=== PATIENT | male | born 1990 | race African-American/Black ===

== ENCOUNTER 2018-06-25 15:57 | Emergency (ER) | payer BC ==
[2018-06-25 16:11] VITALS: BP 139/89
--- NOTE | 2018-06-25 17:41 | EDM.PDOC ---
ED HPI GENERAL MEDICAL PROBLEM - General Chief Complaint: Chest Pain Stated Complaint: CHEST PAIN SENT BY CLINIC Time Seen by Provider: 06/25/18 16:09 Source of Information: Reports: Patient History Limitations: Reports: No Limitations - History of Present Illness INITIAL COMMENTS - FREE TEXT/NARRATIVE: The patient presents with chest pain. The pain started 3 weeks ago. This comes and goes. It is in the center of the chest. He has no shortness of breath. He has no swelling or pain in his legs. He has no fever, chills or cough. He does not smoke. He has no history of heart problems. Onset: Gradual Duration: Week(s): (3) Location: Reports: Chest Quality: Reports: Sharp Severity: Moderate Improves with: Reports: None Worsens with: Reports: None Associated Symptoms: Reports: Chest Pain. Denies: Cough, Fever/Chills, Headaches, Nausea/Vomiting, Shortness of Breath Middle Chest Pain Score (Numeric/FACES): 8 - Related Data Allergies Allergy/AdvReac Type Severity Reaction Status Date / Time No Known Allergies Allergy Verified 06/25/18 16:09 Home Meds: Home Meds Fluconazole [Diflucan] 150 mg PO ONETIME #1 tab 06/25/18 [Rx] Naproxen [Naprosyn] 500 mg PO Q12HR PRN #30 tab 06/25/18 [Rx] Past Medical History - Past Health History Medical/Surgical History: Denies Medical/Surgical History HEENT History: Reports: None Cardiovascular History: Reports: None Respiratory History: Reports: None Gastrointestinal History: Reports: None Genitourinary History: Reports: None Musculoskeletal History: Reports: None Neurological History: Reports: None Psychiatric History: Reports: None Endocrine/Metabolic History: Reports: None Immunologic History: Reports: None Oncologic (Cancer) History: Reports: None Dermatologic History: Reports: None - Infectious Disease History Infectious Disease History: Reports: None - Past Surgical History Head Surgeries/Procedures: Reports: None Male Surgical History: Reports: None Social & Family History - Family History Family Medical History: Noncontributory - Tobacco Use Smoking Status *Q: Never Smoker - Caffeine Use Caffeine Use: Reports: None - Recreational Drug Use Recreational Drug Use: No - Living Situation & Occupation Living situation: Reports: , Other Occupation: Employed ED ROS GENERAL - Review of Systems Review Of Systems: See Below Constitutional: Reports: No Symptoms HEENT: Reports: No Symptoms Respiratory: Reports: No Symptoms Cardiovascular: Reports: Chest Pain Endocrine: Reports: No Symptoms GI/Abdominal: Reports: No Symptoms : Reports: No Symptoms Musculoskeletal: Reports: No Symptoms ED EXAM, GENERAL - Physical Exam Exam: See Below Exam Limited By: No Limitations General Appearance: Alert, No Apparent Distress Ears: Normal External Exam Nose: Normal Inspection Head: Atraumatic, Normocephalic Neck: Normal Inspection Respiratory/Chest: No Respiratory Distress, Lungs Clear, Normal Breath Sounds Cardiovascular: Regular Rate, Rhythm, No Edema, No Murmur GI/Abdominal: Soft, Non-Tender, No Organomegaly, No Mass Back Exam: Normal Inspection Extremities: Normal Inspection EKG INTERPRETATION EKG Date: 06/25/18 Time: 16:24 Rhythm: NSR Rate (Beats/Min): 63 Jackson: Normal P-Wave: Present QRS: Normal ST-T: Elevated (inferior, lateral and anterior) Course - Vital Signs Last Recorded V/S: Last Vital Signs Temp 98.2 F 06/25/18 16:11 Pulse 74 06/25/18 16:11 Resp 14 06/25/18 16:11 BP 139/89 06/25/18 16:11 Pulse Ox 100 06/25/18 16:11 - Orders/Labs/Meds Orders: Active Orders 24 hr Category Date Time Status Cardiac Monitoring [RC] . DIRECTED Care 06/25/18 16:16 Active EKG Documentation Completion [RC] STAT Care 06/25/18 16:17 Active Chest 2V [CR] Stat Exams 06/25/18 16:17 Taken Labs: Laboratory Tests 06/25/18 06/25/18 06/25/18 Range/Units 16:35 16:35 16:35 WBC 6.98 (4.23-9.07) K/mm3 RBC 5.35 (4.63-6.08) M/mm3 Hgb 15.2 (13.7-17.5) gm/L Hct 42.4 (40.1-51.0) % MCV 79.3 (79.0-92.2) fl MCH 28.4 (25.7-32.2) pg MCHC 35.8 H (32.2-35.5) g/dl RDW Std Deviation 38.7 (35.1-43.9) fL Plt Count 180 (163-337) K/mm3 MPV 11.4 (9.4-12.3) fl Neut % (Auto) 34.6 (34.0-67.9) % Lymph % (Auto) 50.3 (21.8-53.1) % [place] % (Auto) 9.2 (5.3-12.2) % Eos % (Auto) 5.2 (0.8-7.0) Baso % (Auto) 0.6 (0.1-1.2) % Neut # (Auto) 2.42 (1.78-5.38) K/mm3 Lymph # (Auto) 3.51 (1.32-3.57) K/mm3 [place] # (Auto) 0.64 (0.30-0.82) K/mm3 Eos # (Auto) 0.36 (0.04-0.54) K/mm3 Baso # (Auto) 0.04 (0.01-0.08) K/mm3 D-Dimer, Quantitative 0.47 (0.19-0.50) mg/L Sodium 140 (136-145) mEq/L Potassium 3.5 (3.5-5.1) mEq/L Chloride 105 (98-107) mEq/L Carbon Dioxide 30 (21-32) mEq/L Anion Gap 8.5 (5-15) BUN 18 (7-18) mg/dL Creatinine 1.1 (0.7-1.3) mg/dL Est Cr Clr Drug Dosing 95.86 mL/min Estimated GFR (MDRD) > 60 (>60) mL/min BUN/Creatinine Ratio 16.4 (14-18) Glucose 112 H (74-106) mg/dL Calcium 9.2 (8.5-10.1) mg/dL Total Bilirubin 0.5 (0.2-1.0) mg/dL AST 18 (15-37) U/L ALT 32 (16-63) U/L Alkaline Phosphatase 102 (46-116) U/L Troponin I < 0.017 (0.00-0.056) ng/mL Total Protein 7.9 (6.4-8.2) g/dl Albumin 4.2 (3.4-5.0) g/dl Globulin 3.7 gm/dL Albumin/Globulin Ratio 1.1 (1-2) - Re-Assessments/Exams Free Text/Narrative Re-Assessment/Exam: 06/25/18 18:58 His CBC and CMP look good. His troponin is negative. His EKG shows pericarditis. I will get him on some naprosyn. He also wanted me to look at his penis. He has a rash and his has a yeast infection. It does look like a yeast. I gave him a dose of diflucan. Departure - Departure Time of Disposition: 17:40 Disposition: Home, Self-Care 01 Condition: Good Clinical Impression: Magdalene infection of genital region Pericarditis Qualifiers: Pericarditis type: unspecified type Chronicity: acute Qualified Code(s): I30.9 - Acute pericarditis, unspecified Prescriptions: Naproxen [Naprosyn] 500 mg PO Q12HR PRN #30 tab PRN Reason: Pain Fluconazole [Diflucan] 150 mg PO ONETIME #1 tab Instructions: Pericarditis Referrals: PCP,None [Primary Care Provider] - Dinorah Choi PA-C [Physician [employer]] - 1 Week Forms: ED Department Discharge Additional Instructions: Take naprosyn by mouth every 12 hours as needed for pain. Follow up with Dinorah Choi. Please return if you are worse. Take the diflucan 1 time and that should help. - My Orders Last 24 Hours: My Active Orders 06/25/18 16:16 Cardiac Monitoring [RC] . DIRECTED 06/25/18 16:17 EKG Documentation Completion [RC] STAT Chest 2V [CR] Stat - Assessment/Plan Last 24 Hours: My Active Orders 06/25/18 16:16 Cardiac Monitoring [RC] . DIRECTED 06/25/18 16:17 EKG Documentation Completion [RC] STAT Chest 2V [CR] Stat
--- NOTE | 2018-06-28 07:28 | CR ---
Chest: Two views of the chest were obtained. Comparison: No prior chest x-ray. Heart size and mediastinum are normal. Lungs are clear. Bony structures are unremarkable. Impression: 1. Nothing acute is seen on two-view chest x-ray. Diagnostic code #1
== END 2018-06-25 17:53 | disposition home or self-care (01) ==
LOC: JD.ED 15:57
DX: I30.9 Acute pericarditis, unspecified (principal); B37.89 Other sites of candidiasis
CPT/HCPCS: 36415; 71046; 71046-26; 80053; 84484; 85025; 85379; 93005; 93010; 99284; 99285-25

== ENCOUNTER 2019-12-19 04:32 | Emergency (ER) | payer BC ==
[2019-12-19 04:48] VITALS: BP 142/94; PULSE 98
--- NOTE | 2019-12-19 04:54 | EDM.PDOC ---
ED HPI GENERAL MEDICAL PROBLEM - General Chief Complaint: General Stated Complaint: FATIGUE, MUSCLE PAIN Time Seen by Provider: 12/19/19 04:52 - History of Present Illness INITIAL COMMENTS - FREE TEXT/NARRATIVE: 29-year-old male presents the emergency room with body aches after working. On this last this patient spent 11 hours moving from one apartment to the next. He was doing a lot of heavy lifting. Then on Thursday he works about a 14-hour shift at work never had a chance to get better he tried to rest up yesterday but awoke this morning still having some discomfort. He notices the discomfort when he moves his extremities and when he uses his back generally does not have much discomfort with rest. Patient has not had any fevers or chills no generalized aches or pains just when he uses his muscles. Patient has some discomfort in his back when he uses his back this is not associated with any loss of bowel or bladder control. He has not had any burning or frequency with urination no other abdominal symptoms no nausea vomiting constipation or diarrhea. He is not aware of any sick exposures. Patient has tried Tylenol but has not had much success with this. Bilateral Arm Pain Score (Numeric/FACES): 3 - Related Data Allergies Allergy/AdvReac Type Severity Reaction Status Date / Time No Known Allergies Allergy Verified 12/19/19 04:48 Home Meds: Home Meds Fluconazole [Diflucan] 150 mg PO ONETIME #1 tab 06/25/18 [Rx] Naproxen [Naprosyn] 500 mg PO Q12HR PRN #30 tab 06/25/18 [Rx] Past Medical History - Past Health History Medical/Surgical History: Denies Medical/Surgical History HEENT History: Reports: None Cardiovascular History: Reports: None Respiratory History: Reports: None Gastrointestinal History: Reports: None Genitourinary History: Reports: None Musculoskeletal History: Reports: None Neurological History: Reports: None Psychiatric History: Reports: None Endocrine/Metabolic History: Reports: None Immunologic History: Reports: None Oncologic (Cancer) History: Reports: None Dermatologic History: Reports: None - Infectious Disease History Infectious Disease History: Reports: None - Past Surgical History Head Surgeries/Procedures: Reports: None Male Surgical History: Reports: None Social & Family History - Family History Family Medical History: Noncontributory - Tobacco Use Tobacco Use Status *Q: Never Tobacco User Second Hand Smoke Exposure: No - Caffeine Use Caffeine Use: Reports: None - Recreational Drug Use Recreational Drug Use: No - Living Situation & Occupation Living situation: Reports: , Other Occupation: Employed ED ROS GENERAL - Review of Systems Review Of Systems: See Below Constitutional: Reports: No Symptoms HEENT: Reports: No Symptoms Respiratory: Reports: No Symptoms Cardiovascular: Reports: No Symptoms GI/Abdominal: Reports: No Symptoms : Reports: No Symptoms Musculoskeletal: Reports: Other (Muscle pain when he uses that specific muscle like in his upper arms and in his back but no joint pain. The pain is with activity only) Skin: Reports: No Symptoms Neurological: Reports: No Symptoms ED EXAM, GENERAL - Physical Exam Exam: See Below Exam Limited By: No Limitations General Appearance: Alert, No Apparent Distress Head: Atraumatic, Normocephalic Neck: Normal Inspection, Supple, Non-Tender, Full Range of Motion Respiratory/Chest: No Respiratory Distress, Lungs Clear, Normal Breath Sounds Cardiovascular: Regular Rate, Rhythm, No Edema, No Murmur GI/Abdominal: Normal Bowel Sounds, Soft, Non-Tender Back Exam: Normal Inspection, Other (With palpation of his back I really cannot elicit any discomfort). No: CVA Tenderness (L), CVA Tenderness (R), Paraspinal Tenderness, Vertebral Tenderness Extremities: Normal Inspection, Normal Range of Motion, No Pedal Edema, Other (Palpation does not seem to cause any discomfort and again the patient says he has pain when using the specific muscles) Neurological: Alert, Oriented, Normal Cognition Skin Exam: Warm, Dry, Intact Course - Vital Signs Last Recorded V/S: Last Vital Signs Temp 36.6 C 12/19/19 04:43 Pulse 98 12/19/19 04:43 Resp 20 12/19/19 04:43 BP 142/94 H 12/19/19 04:43 Pulse Ox 99 12/19/19 04:43 - Orders/Labs/Meds Orders: Active Orders 24 hr Category Date Time Status Influenza Vaccine Charge [RC] .DISCHARGE Care 12/19/19 04:50 Active Meds: Medications Discontinued Medications Generic Name Dose Route Start Last Admin Trade Name Freq PRN Reason Stop Dose Admin Influenza Virus Vaccine 60 mcg 12/19/19 05:00 Fluzone Quad [id number] Syringe IM 12/19/19 05:01 .ONCE ONE Departure - Departure Time of Disposition: 05:16 Disposition: Home, Self-Care 01 Clinical Impression: Muscle pain - Discharge Information Referrals: PCP,None [Primary Care Provider] - Forms: ED Department Discharge Additional Instructions: Return to the emergency room with any questions problems or worsening symptoms. Establish with a local healthcare provider. Tried naproxen, or Naprosyn. This comes as 220 mg [id number]. Take 1 or 2 twice daily with meals. Push lots of fluids. Sepsis Event Note (ED) - Evaluation Sepsis Screening Result: No Definite Risk - Focused Exam Vital Signs: Vital Signs Temp Pulse Resp BP Pulse Ox 12/19/19 04:43 36.6 C 98 20 142/94 H 99 - My Orders Last 24 Hours: My Active Orders 12/19/19 04:50 Influenza Vaccine Charge [RC] .DISCHARGE - Assessment/Plan Last 24 Hours: My Active Orders 12/19/19 04:50 Influenza Vaccine Charge [RC] .DISCHARGE
[2019-12-19] MEDS ORDERED: FLU VACC QS2020-21(6MOS UP)/PF 60 MCG/0.5 ML SYRINGE IM ONE (05:00)
== END 2019-12-19 05:35 | disposition home or self-care (01) ==
LOC: JD.ED 04:32
DX: M79.10 Myalgia, unspecified site (principal); Z23 Encounter for immunization
CPT/HCPCS: 90686; 99282; 99283-25; G0008